=== PATIENT | male | born 1990 | race Caucasian/White ===

== ENCOUNTER 2020-06-26 09:27 | Outpatient (REF) | payer OTHER, SELFPAY ==
--- NOTE | 2020-06-26 09:29 | XR_ITS ---
EXAMINATION: XR SHOULDER, LEFT CLINICAL INFORMATION: Left shoulder pain. COMPARISON: None. TECHNIQUE: Left shoulder is imaged in 3 views. FINDINGS: There is no fracture or dislocation or destructive process. The acromioclavicular alignment is normal. The glenohumeral joint appears normal. There are no visible rotator cuff calcifications. XR/XR shoulder LT min 2V IMPRESSION: Normal left shoulder.
== END 2020-06-26 09:28 | disposition home or self-care (01) ==
LOC: HO.XRAY 09:27
PROVIDERS: Visit Provider Physician Assistant
DX: M75.80 Other shoulder lesions, unspecified shoulder (principal)
CPT/HCPCS: 73030; 99212

== ENCOUNTER 2020-08-11 12:41 | Outpatient (REF) | payer OTHER, SELFPAY | END 2020-08-11 12:42 | disposition home or self-care (01) | LOC: HO.LAB 12:41 | PROVIDERS: Visit Provider Internal Medicine | DX: Z20.828 Contact with and (suspected) exposure to other viral communicable diseases (principal) | CPT/HCPCS: C9803; U0003 ==

== ENCOUNTER 2022-03-15 11:42 | Emergency (ER) | payer OTHER, SELFPAY ==
[2022-03-15 14:30] VITALS: BP 145/78; PULSE 59; RESP 18; TEMP 36.6; O2SAT 99; BMI 24.9
--- NOTE | 2022-03-15 15:35 | ED_ITS ---
HPI - Eye Problem General Chief complaint: Eye Problems Stated complaint: sty in eye Time Seen by Provider: 03/15/22 15:23 Source: patient Mode of arrival: ambulatory Limitations: no limitations History of Present Illness HPI Narrative: 32-year-old male who is healthy here with reports of right lower eyelid swelling and redness for 5 days despite using warm compresses. Patient has no vision changes, no eye pain, no discharge from the eye. No fevers, chills or URI symptoms. He does not use any contacts Related Data Previous Rx's Medication Instructions Recorded naproxen 500 mg tablet 500 mg PO BID #30 tabs 06/26/20 doxycycline monohydrate 100 mg 100 mg PO BID #14 tabs 03/15/22 tablet Allergies Allergy/AdvReac Type Severity Reaction Status Date / Time No Known Allergies Allergy Verified 06/26/20 09:29 [No Known Allergies*] Review of Systems Review of Systems: Yes all other systems are reviewed and are negative Constitutional: Constitutional: Reports no additional constitutional complaints, Denies body ache(s), Denies chills, Denies fever(s), Denies headach e(s) and Denies weakness Eyes: Eyes: Reports no additional eye complaints, Denies change in vision, Denies eye discharge, Denies eye pain and Denies photophobia Comments: +eyelid swelling ENT: Reports system reviewed and no additional complaints, except as documente d, Denies dizziness, Denies headache(s), Denies nasal congestion, Denies nasal discharge and Denies neck pain Cardiovascular: Cardiovascular: Reports no additional cardiovascular complaints, Denies chest pain, Denies leg edema and Denies dyspnea Respiratory: Respiratory: Reports no additional respiratory complaints, Denies cough and Denies dyspnea Gastrointestinal: Gastrointestinal: Reports no additional gastrointestinal complaints, Denies abdominal pain, Denies diarrhea, Denies nausea and Denies vomiting Genitourinary: Genitourinary: Denies urinary incontinence Musculoskeletal: Musculoskeletal: Reports no additional musculoskeletal complaints, Denies back pain, Denies arthralgias, Denies joint swelling, Denies neck pain, Denies numbness and Denies tingling Integumentary/Breasts: Skin/Breast: Reports system reviewed and no additional complaints, except as docu and Denies rash Neurologic: Reports system reviewed and no additional complaints, except as documented, Denies Abnormal speech present, Denies dizziness, Denies headache(s), Denies numbness, Denies tingling and Denies weakness [facility] Past Medical History Attestation statement: The following information was validated with the patient. Source: old records reviewed and nursing notes reviewed Surgical History History of ankle surgery Hx of appendectomy (~2019) Family History Family History Father No problems noted. Mother No problems noted. Social History Social History Advance Directives: No Advance Directives Information Provided: Yes service: No Current occupational status: employed Current occupation: [employer]OR Physical Exam Vital Signs: Vital Signs: Last Vital Signs Temp 98 F 03/15/22 14:30 Pulse 59 03/15/22 14:30 Resp 18 03/15/22 14:30 BP 145/78 H 03/15/22 14:30 Pulse Ox 99 03/15/22 14:30 BMI result Body Mass Index 24.9 Const: General: cooperative, healthy appearing, comfortable and no acute distress Orientation/consciousness: patient oriented x3 Limitations: no limitations HEENT: Head: Yes normal to inspection Ears: hearing grossly normal bilaterally and TM's normal bilaterally General nose exam: Normal external nose present Face and sinus: Yes normal facial exam Mouth: Normal oral and palatal mucosa present Throat: Yes posterior oropharynx normal Eyes: General: appearance normal, both eyes and all related structures Visual Witt: normal visual witt by confrontation Alignment and Position: alignment normal Periorbital: periorbital findings normal Conjunctivae: conjunctivae normal Sclerae: sclerae normal Corneas: corneas normal Pupils: Equal, round and reactive pupils present EOM: EOMs intact bilaterally Direct Ophthalmoscopy: No photophobia Eyes/upper lids images: 1. There is swelling, redness, tenderness. No pointing. Neck: Neck: Yes normal visual inspection Chest: Chest palpation & inspection: normal inspection of the chest Resp: Effort & Inspection: normal respiratory effort Auscultation: clear to auscultation bilaterally Cardio: Rate: regular rate Rhythm: regular rhythm Peripheral pulses: Per ipheral pulses 2+ throughout GI: Inspection: Yes normal to inspection Palpation (GI): Soft to palpation and nontender Auscultation: normal bowel sounds Back/Spine/Pelvis: Thoracic/Lumbar Spine: thoracic and lumbar spine normal to inspection Skin: General skin exam: no rashes or lesions noted Neuro: General: patient oriented x3, no focal motor deficits and normal sensation to monofilament Cranial nerves: Yes Equal, round and reactive pupils present Cognition (Neuro): normal cognition Speech: No Abnormal speech present Gait exam (Neuro): Normal gait present Motor exam (neuro): 5/5 motor strength present throughout Extrem: General: Yes normal to inspection MDM - Eye Problem MDM Narrative Medical decision making narrative: 32-year-old male who presents with right eyelid hordeolum for 5 days despite warm compresses at home No visual complaints -will start oral antibiotics, recommend warm compresses Medical Records Attestation: I reviewed the patient's medical records. Lab Data Attestation: I reviewed the patient's lab results. Discharge Plan Discharge Clinical Impression: Hordeolum Patient Disposition: Home, Self-Care Instructions: Jong (ED) Additional Instructions: Warm compresses 4 times daily followed by gentle massage Prescriptions: New doxycycline monohydrate 100 mg tablet 100 mg PO BID Qty: 14 0RF No Action naproxen 500 mg tablet 500 mg PO BID Qty: 30 0RF Referrals: Physician,None [Primary Care Provider] - Interventions: ED Discharge Assessment Last Done: 03/15/22 15:53 Discharge Date/Time: 03/15/22 15:54
== END 2022-03-15 15:54 | disposition home or self-care (01) ==
LOC: HO.ED 15:43
PROVIDERS: Emergency Provider Emergency Medicine
DX: H00.012 Hordeolum externum right lower eyelid (principal); Z79.899 Other long term (current) drug therapy
CPT/HCPCS: 99283